=== PATIENT | male | born 1985 | race African-American/Black ===

== ENCOUNTER 2017-06-03 14:13 | Emergency (ER) | payer MEDICAID, OTHER ==
[~2017-06-03] VITALS: Ht 170.2 cm; Wt 131.5 kg
[2017-06-03 15:22] VITALS: BP 152/101
[2017-06-03] MEDS ORDERED: METHOCARBAMOL 500 MG TAB PO ONE (16:00)
[2017-06-03] MEDS ORDERED: KETOROLAC TROMETH 60MG/2ML VIAL IM ONE (16:00)
== END 2017-06-03 17:31 | disposition home or self-care (01) ==
LOC: ER 14:13
DX: S13.4XXA Sprain of ligaments of cervical spine, initial encounter (principal); V43.52XA Car driver injured in collision with other type car in traffic accident, initial encounter; Y93.89 Activity, other specified; Y92.488 Other paved roadways as the place of occurrence of the external cause; Y99.8 Other external cause status
CPT/HCPCS: 71046; 72125; 93005; 96372; 99284; J1885